=== PATIENT | male | born 1965 | race Caucasian/White ===

== ENCOUNTER 2020-11-25 12:44 | Day surgery (SDCO) | payer OTHER ==
[~2020-11-25] VITALS: Ht 188 cm; Wt 100.0 kg
[~2020-11-25 12:44] MED LIST: AMOXICILLIN500 MG PO; LEXAPRO 10MG TA10 MG PO; NORCO 5-325 TA1 EACH PO; WELLBUTRIN100 MG PO
[2020-11-25 13:45] LABS: BASOPHIL 0.6 % (0-2); EOSINOPHIL 3.5 % (0-5); HCT 44.3 % (42.0-52.0); HGB 15.1 g/dl (13.2-18.0); LYMPHOCYTE 15.4 % (15-48); MCH 29.8 pg (25.0-31.0); MCHC 34.1 g/dL (32.0-36.0); MCV 87.5 fL (78.0-100.0); MONOCYTE 10.4 % (0-12); MPV 9.3 fL (6.0-9.5); NEUTROPHIL 69.7 % (41-80); NRBC 0; PLT 187 K/uL (150-400); RBC 5.06 M/uL (4.70-6.00); RDW 12.6 % (11.5-14.0); WBC 7.1 K/uL (4.0-10.5)
[2020-11-25 13:46] LABS: BILIRUBIN NEGATIVE (NEGATIVE); BLOOD NEGATIVE Ery/uL (NEGATIVE); CLARITY CLEAR (CLEAR); COLOR YELLOW (YELLOW); GLUCOSE (U) NORMAL (NORMAL); LEUKOCYTES NEGATIVE Leu/uL (NEGATIVE); NITRITE NEGATIVE (NEGATIVE); PROTEIN NEGATIVE (NEGATIVE)
[2020-11-25 13:54] LABS: ALBUMIN 3.6 g/dL (3.4-5.0); BILIRUBIN - TOTAL 0.5 mg/dL (0.2-1.0); BUN/CREAT RATIO (CALC) 13.7 RATIO; CREATININE 1.24 mg/dL (0.67-1.17); GLOBULIN (CALCULATION) 3.3 g/dL; POTASSIUM 4.7 mmol/L (3.5-5.1); TOTAL PROTEIN 6.9 g/dL (6.4-8.2)
[2020-11-25 15:22] LABS: INR 1.08 (0.9-1.2); PROTHROMBIN TIME 13.3 SECONDS (11.4-13.6); PTT 30.3 SECONDS (22.2-34.7)
[2020-11-25 16:42] LABS: CORONAVIRUS 2019 SARS-COV-2 NEGATIVE (NEGATIVE); INFLUENZA A NAA NEGATIVE (NEGATIVE)
[2020-11-25] MEDS ORDERED: LEXAPRO 10MG TA10 MG PO (18:06)
[2020-11-25] MEDS ORDERED: WELLBUTRIN XL150 MG PO (18:07)
[2020-11-25] MEDS ORDERED: VYVANSE60 MG PO (18:08)
[2020-11-26 04:17] LABS: BASOPHIL 0.8 % (0-2); EOSINOPHIL 5.4 % (0-5); HGB 14.4 g/dl (13.2-18.0); LYMPHOCYTE 26.8 % (15-48); MCH 29.9 pg (25.0-31.0); MCHC 34.3 g/dL (32.0-36.0); MCV 87.3 fL (78.0-100.0); MONOCYTE 9.7 % (0-12); MPV 9.5 fL (6.0-9.5); NRBC 0; PLT 167 K/uL (150-400); RBC 4.81 M/uL (4.70-6.00); RDW 12.7 % (11.5-14.0); WBC 6.6 K/uL (4.0-10.5)
[2020-11-26 04:29] LABS: BUN/CREAT RATIO (CALC) 13.9 RATIO; CREATININE 1.22 mg/dL (0.67-1.17); POTASSIUM 4.1 mmol/L (3.5-5.1)
--- NOTE | 2020-11-26 12:09 | NUR ---
[address] WERNER OF THE INCREASE IN THE HEPARIN DRIP. 1145 3000 UNTI HEPARIN BOLUS WAS GIVEN AND INCREASED THE RATE BY 100 UNITS/HR HEPARIN IS RUNNING AT 12 UNITS PER HOUR NOW AND A NEW PTT WILL BE DRAWN AT 1745 TODAY. WILL CONTINUE TO MONITOR FOR CHANGES.
[2020-11-26] MEDS ORDERED: ELIQUIS5 MG PO (14:20)
--- NOTE | 2020-11-26 14:37 | NUR ---
PER YURY WANG ESCRIBED BY DR. WERNER WILL HAVE A 40.00 COPAY; I DID INFORM DR. WERNER AND PT. PT SAID THAT IT WOULD BE FINE. I DID LET THE RN KNOW [employer] OF COST AND THAT PT WAS OK WITH IT
[2020-11-28 11:08] LABS: DRVVT 38.5 sec (0.0-47.0); LUPUS REFLEX INTERPRETATION Comment: (.); PTT-LA 47.2 sec (0.0-51.9)
[2020-11-28 14:08] LABS: PROTEIN S, FREE 96 % (57-157); PROTEIN S, TOTAL 92 % (60-150)
== END 2020-11-26 16:33 | disposition home or self-care (01) ==
LOC: FER 12:44 → FTCU 15:20
PROVIDERS: Nurse Practitioner Family; ADMIT Internal Medicine
DX: I82.4Z2 Acute embolism and thrombosis of unspecified deep veins of left distal lower extremity (principal); I26.99 Other pulmonary embolism without acute cor pulmonale; F32.9 Major depressive disorder, single episode, unspecified; F90.9 Attention-deficit hyperactivity disorder, unspecified type; Z20.822 Contact with and (suspected) exposure to COVID-19
CPT/HCPCS: 36415; 71275; 80048; 80053; 81003; 81241; 83090; 84484; 85025; 85300; 85303; 85306; 85379; 85610; 85613; 85730; 85732; 93005; 93971; G0378; J1644; J7030; Q9967; U0002

== ENCOUNTER 2021-11-20 16:34 | Emergency (ER) | payer OTHER ==
[~2021-11-20 16:34] MED LIST changes: +ELIQUIS5 MG PO; +VYVANSE60 MG PO; +WELLBUTRIN XL150 MG PO
== END 2021-11-20 19:20 | disposition home or self-care (01) ==
LOC: FER 16:34
DX: M79.661 Pain in right lower leg (principal)
CPT/HCPCS: 93971